=== PATIENT | male | born 1940 | race Caucasian/White ===

== ENCOUNTER → 2021-03-19 10:01 | Outpatient (BNVA) | payer OTHER, SELFPAY | PROVIDERS: PCP Internal Medicine; Visit Provider Nurse Practitioner Family ==

== ENCOUNTER → 2021-09-22 10:02 | Outpatient (BNVA) | payer OTHER, SELFPAY | PROVIDERS: PCP Internal Medicine; Visit Provider Nurse Practitioner Family | DX: G20 Parkinson's disease (principal); F39 Unspecified mood [affective] disorder; Z79.899 Other long term (current) drug therapy | CPT/HCPCS: 99212 ==

== ENCOUNTER → 2022-05-19 11:00 | Outpatient (BNVA) | payer OTHER, SELFPAY | PROVIDERS: PCP Internal Medicine; Visit Provider Nurse Practitioner Family | DX: Z13.89 Encounter for screening for other disorder (principal) ==

== ENCOUNTER 2023-01-13 10:58 | Outpatient (AMB) | payer OTHER, SELFPAY ==
--- NOTE | 2023-01-13 11:13 | A.OFFVIS_ITS ---
Intake Vital Signs 01/13/23 11:18 Height 5 ft 7 in Weight 118 lb BMI 18.5 BP 140/68 H Blood Pressure Location Rt brachial Position Sitting Intake Visit Reasons: 6m follow up -? Dementia-LVM Intake Note: Patient presents for 6 month follow up. Patient states About a month and a half ago I was going on a trip and he had to stay behind, he visited a friend and when he tried to leave he ended up getting lost forgot where he was or where he was going. ([facility]) Allergies No Known Allergies Allergy (Verified 01/13/23 11:17) HPI HPI Comments History of Present Illness Details 82 y/o male patient presents with his gr anddaughter for follow up of Parkinson's and depression. His granddaughter noticed that his memory has been declined, keep asking same questions over and over again. He was lost when he visited his relatives. The place was where he worked before and familiar with him. He called his sister for help. He still drives short distance to go grocery shopping or [employer]. Pt reports that the Parkinson's symptoms are mild, and stable. However, his hands tremor getting worsened with activity, right hand has more tremor than left hand. He uses stabilizer when he needs to write something. He is right handed, but sometimes uses left hand when he drinks coffee. Pt is on Selegiline 5 mg BID. He is very active and can do ADLs independently. Denies hallucination or lightheadedness. Denies choking or constipation. Pt reports his appetite is not good, always not been great. He only drinks seltzer and soda. He eats candies and cookies for breakfast and lunch, frozen meals for dinner. [facility] Surgical History H/O shoulder surgery Social History Alcohol intake: never Patient Tobacco Use Status: Never used Tobacco Review of Systems Const All systems reviewed & are unremarkable except as noted in HPI and below ENT Reports Normal hearing present Neuro Reports Normal hearing present Physical Exam Vital Signs: Last Vital Signs BP 140/68 H 01/13/23 11:18 BMI result Body Mass Index 18.5 Const General: cooperative and no acute distress Nutritional Appearance: underweight Resp Effort & Inspection: normal respiratory effort and able to speak in complete sentences Neuro Other: Decreased expression- mild. Minimal left hand resting tremor. Moderate right hand posturing and action tremor. BUE and foot taps- mild bradykineisa. Gait- Decreased bilateral arm swing but steady. General: moves all extremities Cranial nerves: Yes Bilaterally intact EOM present, Yes Midline tongue present, Yes Symmetric palate elevation present, Yes Normal hearing present, Yes Ability to bilaterally rotate head present and Yes Ability to bilaterally elevate shoulders present Cognition (Neuro): normal cognition Gait exam (Neuro): Normal gait present Motor exam (neuro): 5/5 motor strength present throughout and Pronator motor function not present Psych Mental Status: mental status grossly normal Affect: normal affect Attitude: cooperative Orientation What is the (year) (season) (date) (day) (month)?: year and season Where are we (state) (county) (town or city) (hospital) (floor)?: state, county, town or city and hospital/clinic Registration Name of 3 unrelated objects clearly and slowly, then ask patient to repeat all 3 of them. (1st repeat determines score. Make sure they can repeat all three): object 1, object 2 and object 3 Attention & Calculation (CHOOSE ONE) Ask pt to begin with 100 & count backward by 7. Stop after 5 repeats. If pt cannot ask them to spell the word WORLD backward.: 93 Language Show patient a wristwatch & ask what it is. Repeat for pencil.: watch and pencil Ask the patient to repeat the phrase 'No ifs, ands, or buts' after you.: incorrect Ask the patient to 'take a piece of paper with their right hand' 'fold paper in half' 'place paper on floor': take paper in right hand, fold paper in half and place paper on floor Print the sentence 'CLOSE YOUR EYES' on a piece. If patient actually closes eyes then score.: followed written direction Give patient a blank piece of paper & ask to write a sentence. Score if it contains a noun & verb.: sentence contains subject and verb Ask patient to copy figure of intersecting pentagons exactly. Score if all 10 angles & 2 intersects are included.: all 10 angles present & 2 are intersected Score Score: 18 Assessment & Plan Assessment & Plan (1) Parkinson disease: Comment: asymmetric RUE rest tremor, tone, falls. Sinemet responsive. Code(s): G20 - Parkinson's disease (2) Mood disorder: Code(s): F39 - Unspecified mood [affective] disorder (3) Dementia: Code(s): F03.90 - Unspecified dementia, unspecified severity, without behavioral disturbance, psychotic disturbance, mood disturbance, and anxiety Plan Advised patient to continue to take selegiline 5 mg BID. Start memantine 5 mg q daily. Encouraged patient to increase PO intake, pt may use protein shake. Continue to do daily activity and exercise. Encouraged patient to have well balanced diet. Medications: New memantine 5 mg PO QAM 30 days 30 tabs 6RF Refilled selegiline HCl 5 mg PO BID 30 days 60 caps 6RF Coding Level of Care Code Est Pt Level 4 (75568) Diagnoses Parkinson disease G20 Mood disorder F39 Dementia F03.90
[2023-01-13 11:18] VITALS: BP 140/68; BMI 18.5
== END 2023-01-13 11:51 | disposition home or self-care (01) ==
PROVIDERS: PCP Internal Medicine; Visit Provider Nurse Practitioner Family
DX: G20.A1 Parkinson's disease without dyskinesia, without mention of fluctuations (principal); F02.83 Dementia in other diseases classified elsewhere, unspecified severity, with mood disturbance
CPT/HCPCS: 99214

== ENCOUNTER → 2023-01-13 10:58 | Outpatient (BNVA) | payer OTHER, SELFPAY | PROVIDERS: PCP Internal Medicine; Visit Provider Nurse Practitioner Family ==

== ENCOUNTER 2023-11-29 11:08 | Outpatient (AMB) | payer OTHER, SELFPAY ==
[2023-11-29 11:18] VITALS: BP 142/82; PULSE 72; RESP 16; O2SAT 100; BMI 18.6
--- NOTE | 2023-11-29 11:18 | A.OFFVIS_ITS ---
Vital Signs 11/29/23 11:18 Height 5 ft 7 in Weight 119 lb BMI 18.6 BP 142/82 H Blood Pressure Location Rt brachial Position Sitting Respiration 16 Pulse 72 Pulse Source Palpation Pulse Oximetry (%) 100 Oxygen Delivery Method Room Air Intake Visit Reasons: 6 mo f/u- Parkinson/Dementia Intake Note: Pt presents to the office for a 10 month follow up for Parkinson's and dementia. Felt Tipping Machine Tender Required: No Allergies No Known Allergies Allergy (Verified 11/29/23 11:18) Medication List - Last Reconciled 11/29/23 by Ivette Washburn MD amlodipine 10 mg PO DAILY atorvastatin 40 mg PO DAILY gabapentin 300 mg PO BEDTIME isosorbide mononitrate ER 30 mg PO DAILY levothyroxine 50 mcg PO DAILY memantine 10 mg PO BID 30 days memantine 28 mg PO DAILY metoprolol succinate ER 25 mg PO DAILY omeprazole 20 mg PO DAILY selegiline HCl 5 mg PO BID 30 days HPI Comments Details: 83 y/o male patient presents with his granddaughter for follow up of Parkinson's and depression.He is doing good. Memory is worse He still drives short distances to go grocery shopping or [employer]. Pt reports that the Parkinson's symptoms are mild, and stable.. He lives with his sister(101 yrs old) and his grand daughter. However, his hands tremor getting worsened with activity, right hand has more tremor than left hand. He uses stabilizer when he needs to write something. He is right handed, but sometimes uses left hand when he drinks coffee. Pt is on Selegiline 5 mg BID. He is very active and can do ADLs independently. Denies hallucination or lightheadedness. Denies choking or constipation. Pt reports his appetite is not good, always not been great. He only drinks seltzer and soda. He eats candies and cookies for breakfast and lunch, frozen meals for dinner. COUNT INCLUDES THE [facility] Medical History (Updated 11/29/23 @ 11:45 by Ivette Washburn MD) Dementia Nocturnal leg cramps Hyperlipidemia HTN (hypertension) Surgical History H/O shoulder surgery Social History Alcohol intake: never Patient Tobacco Use Status: Never used Tobacco Review of Systems ENT Reports Normal hearing present Neuro Reports Normal hearing present Physical Exam Vital Signs: Last Vital Signs Pulse 72 11/29/23 11:18 Resp 16 11/29/23 11:18 BP 142/82 H 11/29/23 11:18 Pulse Ox 100 11/29/23 11:18 Oxygen Delivery Method Room Air 11/29/23 11:18 BMI result Body Mass Index 18.6 Const General: cooperative and no acute distress Nutritional Appearance: underweight Resp Effort & Inspection: normal respiratory effort and able to speak in complete sentences Neuro Other: Decreased expression- mild. Minimal left hand resting tremor. Moderate right hand posturing and action tremor. BUE and foot taps- mild bradykineisa. Gait- Decreased bilateral arm swing but steady. General: moves all extremities Cranial nerves: Yes Bilaterally intact EOM present, Yes Midline tongue present, Yes Symmetric palate elevation present, Yes Normal hearing present, Yes Ability to bilaterally rotate head present and Yes Ability to bilaterally elevate shoulders present Cognition (Neuro): abnormal cognition Gait exam (Neuro): Normal gait present Motor exam (neuro): 5/5 motor strength present throughout and Pronator motor function not present Psych Mental Status: mental status grossly normal Affect: normal affect Attitude: cooperative Orientation What is the (year) (season) (date) (day) (month)?: year, season and month Where are we (state) (county) (town or city) (hospital) (floor)?: state, hospital/clinic and floor Registration Name of 3 unrelated objects clearly and slowly, then ask patient to repeat all 3 of them. (1st repeat determines score. Make sure they can repeat all three): object 1, object 2 and object 3 Attention & Calculation (CHOOSE ONE) Spell WORLD backwards (DLROW): 2 letters Recall Ask patient to repeat the 3 items from question #3.: object 1 Language Show patient a wristwatch & ask what it is. Repeat for pencil.: watch and pencil Ask the patient to repeat the phrase 'No ifs, ands, or buts' after you.: correct Ask the patient to 'take a piece of paper with their right hand' 'fold paper in half' 'place paper on floor': take paper in right hand, fold paper in half and place paper on floor Print the sentence 'CLOSE YOUR EYES' on a piece. If patient actually closes eyes then score.: followed written direction Give patient a blank piece of paper & ask to write a sentence. Score if it contains a noun & verb.: sentence contains subject and verb Score Score: 20 Assessment & Plan Assessment & Plan (1) Parkinson disease: Comment: asymmetric RUE rest tremor, tone, falls. Sinemet responsive. Code(s): G20 - Parkinson's disease Category: Medical Qualifiers: Dyskinesia presence: without dyskinesia Fluctuating manifestations: without fluctuating manifestations Qualified Code(s): G20.A1 - Parkinson's disease without dyskinesia, without mention of fluctuations (2) Mood disorder: Code(s): F39 - Unspecified mood [affective] disorder Category: Medical (3) Nocturnal leg cramps: Code(s): G47.62 - Sleep related leg cramps Category: Medical (4) Dementia: Code(s): F03.90 - Unspecified dementia, unspecified severity, without behavioral disturbance, psychotic disturbance, mood disturbance, and anxiety Category: Medical Qualifiers: Dementia type: unspecified type Dementia severity: mild Dementia behavioral or psychological symptom: without behavioral, psychotic, or mood disturbance or anxiety Qualified Code(s): F03.A0 - Unspecified dementia, mild, without behavioral disturbance, psychotic disturbance, mood disturbance, and anxiety Plan Advised patient to continue to take selegiline 5 mg BID. Increase memantine XR 28mg qd or 10mg bid Encouraged patient to increase PO intake, pt may use protein shake. Continue to do daily activity and exercise. Encouraged patient to have well balanced diet. Medications: New memantine 28 mg PO DAILY 30 ea 6RF Changed From memantine 5 mg PO QAM 30 days 30 tabs 6RF To memantine 10 mg PO BID 30 days 60 tabs 6RF Coding Level of Care Code Est Pt Level 4 (62434) Complex EM visit Add On G2211 Diagnoses Parkinson's disease without dyskinesia or fluctuating manifestations G20.A1 Dyskinesia presence: without dyskinesia Fluctuating manifestations: without fluctuating manifestations Mood disorder F39 Nocturnal leg cramps G47.62 Mild dementia without behavioral disturbance, psychotic disturbance, mood disturbance, or anxiety, unspecified dementia type F03.A0 Dementia type: unspecified type Dementia severity: mild Dementia behavioral or psychological symptom: without behavioral, psychotic, or mood disturbance or anxiety
== END 2023-11-29 11:54 | disposition home or self-care (01) ==
PROVIDERS: PCP Internal Medicine; Visit Provider Psychiatry & Neurology Neurology
DX: G20.A1 Parkinson's disease without dyskinesia, without mention of fluctuations (principal); F39 Unspecified mood [affective] disorder; G47.62 Sleep related leg cramps; F03.A0 Unspecified dementia, mild, without behavioral disturbance, psychotic disturbance, mood disturbance, and anxiety
CPT/HCPCS: 99214; G2211

== ENCOUNTER → 2023-11-29 11:08 | Outpatient (BNVA) | payer OTHER, SELFPAY | PROVIDERS: PCP Internal Medicine; Visit Provider Psychiatry & Neurology Neurology ==

== ENCOUNTER 2024-11-11 15:07 | Outpatient (AMB) | payer OTHER, SELFPAY ==
[2024-11-11 15:09] VITALS: BP 122/76; PULSE 83; O2SAT 96; BMI 18.5
--- NOTE | 2024-11-11 15:09 | MHC.OFFVIS ---
Vital Signs 11/11/24 15:09 Height 5 ft 7 in Weight 118 lb 2 oz BMI 18.5 BP 122/76 Blood Pressure Location Rt brachial Position Sitting Pulse 83 Pulse Source Pulse Oximeter Pulse Oximetry (%) 96 Oxygen Delivery Method Room Air Intake Visit Reasons: 6 mo f/u- Parkinson/Dementia-LVM Intake Note: Follow up Parkinson disease and Dementia Call Box Wirer Required: No Accompanied by: Son Allergies No Known Allergies Allergy (Verified 11/11/24 15:09) Medication List - Last Reconciled 11/11/24 by Ivette Washburn MD amlodipine 10 mg PO DAILY aspirin 81 mg PO DAILY atorvastatin 40 mg PO DAILY gabapentin 300 mg PO BEDTIME levothyroxine 50 mcg PO DAILY memantine 10 mg PO BID 30 days memantine 28 mg PO DAILY omeprazole 20 mg PO DAILY selegiline HCl 5 mg PO BID 30 days HPI Comments Details: 84 y/o male patient presents with his son for follow up of Parkinson's and depression.He is doing good. Memory is worse. He is taking his medications regularly and has somebody monitoring him . No worsening [facility] visit. H eis being evaluated for chest pain with activity. He stopped driving . History from last visit- 12/20 Pt reports that the Parkinson's symptoms are mild, and stable.. He lives with his sister(103 yrs old) and his grand daughter. However, his hands tremor getting worsened with activity, right hand has more tremor than left hand. He uses stabilizer when he needs to write something. He is right handed, but sometimes uses left hand when he drinks coffee. Pt is on Selegiline 5 mg BID. He is very active and can do ADLs independently. Denies hallucination or lightheadedness. Denies choking or constipation. Pt reports his appetite is not good, always not been great. He only drinks seltzer and soda. He eats candies and cookies for breakfast and lunch, frozen meals for dinner. [facility] Medical History Dementia Nocturnal leg cramps Hyperlipidemia HTN (hypertension) Surgical History H/O shoulder surgery Social History Alcohol intake: never Patient Tobacco Use Status: Never used Tobacco Review of Systems ENT Reports Normal hearing present Neuro Reports Normal hearing present Physical Exam Vital Signs: Last Vital Signs Pulse 83 11/11/24 15:09 BP 122/76 11/11/24 15:09 Pulse Ox 96 11/11/24 15:09 Oxygen Delivery Method Room Air 11/11/24 15:09 BMI result Body Mass Index 18.5 Const General: cooperative and no acute distress Nutritional Appearance: underweight Resp Effort & Inspection: normal respiratory effort and able to speak in complete sentences Neuro Other: Decreased expression- mild. No tremors Moderate right hand posturing and action tremor. BUE and foot taps- mild bradykineisa. Gait- Decreased bilateral arm swing but steady. General: moves all extremities Cranial nerves: Yes Bilaterally intact EOM present, Yes Midline tongue present, Yes Symmetric palate elevation present, Yes Normal hearing present, Yes Ability to bilaterally rotate head present and Yes Ability to bilaterally elevate shoulders present Cognition (Neuro): abnormal cognition Gait exam (Neuro): Normal gait present Motor exam (neuro): 5/5 motor strength present throughout and Pronator motor function not present Psych Mental Status: mental status grossly normal Affect: normal affect Attitude: cooperative Assessment & Plan Assessment & Plan (1) Parkinson disease: Comment: asymmetric RUE rest tremor, tone, falls. Sinemet responsive. Code(s): G20 - Parkinson's disease Category: Medical Qualifiers: Dyskinesia presence: without dyskinesia Fluctuating manifestations: without fluctuating manifestations Qualified Code(s): G20.A1 - Parkinson's disease without dyskinesia, without mention of fluctuations (2) Mood disorder: Code(s): F39 - Unspecified mood [affective] disorder Category: Medical (3) Nocturnal leg cramps: Code(s): G47.62 - Sleep related leg cramps Category: Medical (4) Dementia: Code(s): F03.90 - Unspecified dementia, unspecified severity, without behavioral disturbance, psychotic disturbance, mood disturbance, and anxiety Category: Medical Qualifiers: Dementia type: unspecified type Dementia severity: mild Dementia behavioral or psychological symptom: without behavioral, psychotic, or mood disturbance or anxiety Qualified Code(s): F03.A0 - Unspecified dementia, mild, without behavioral disturbance, psychotic disturbance, mood disturbance, and anxiety Plan Advised patient to continue to take selegiline 5 mg BID. memantine XR 28mg qd or 10mg bid Encouraged patient to increase PO intake, pt may use protein shake. Continue to do daily activity and exercise. Encouraged patient to have well balanced diet. Coding Level of Care Code Est Pt Level 4 (48129) Diagnoses Parkinson's disease without dyskinesia or fluctuating manifestations G20.A1 Dyskinesia presence: without dyskinesia Fluctuating manifestations: without fluctuating manifestations Mood disorder F39 Nocturnal leg cramps G47.62 Mild dementia without behavioral disturbance, psychotic disturbance, mood disturbance, or anxiety, unspecified dementia type F03.A0 Dementia type: unspecified type Dementia severity: mild Dementia behavioral or psychological symptom: without behavioral, psychotic, or mood disturbance or anxiety
--- OUTSIDE RECORDS SUMMARY | 2024-11-11 20:33 | XMS_ITS | Clinical Summary ---
Author Organization [address] [facility] Address [address] [place] [address] Phone Care Team Providers Care Garnisher Name Role Phone Arvin Thibodeaux MD Primary Care Provide r Allergies No known active allergies Medications albuterol HFA (PROAIR HFA ; PROVENTIL HFA ; VENTOLIN HFA) 90 mcg/actuation inhaler INHALE 2 PUFFS EVERY 4 HOURS NEEDED FOR SHORTNESS OF BREATH / WHEEZING. 4 Active amLODIPine (NORVASC) 10 mg tablet Take 1 tablet (10 mg total) by mouth 1 (one) time each day. 5 Active atorvastatin (LIPITOR) 40 mg tablet Take 1 tablet (40 mg total) by mouth 1 (one) time each day. 5 Active doxycycline hyclate (VIBRA-TABS) 100 mg tablet Take 1 tablet (100 mg total) by mouth 2 (two) times a day. for 10 days 5 Active gabapentin (NEURONTIN) 300 mg capsule Take 1 capsule (300 mg total) by mouth. at bedtime 5 Active isosorbide mononitrate (IMDUR) 30 mg 24 hr tablet Take 1 tablet (30 mg total) by mouth 1 (one) time each day in the morning. 5 Active levothyroxine (SYNTHROID, LEVOTHROID) 50 mcg tablet TAKE 1 TABLET BY MOUTH DAILY AND TAKE 2 TABLETS ON Monday 5 Active memantine (NAMENDA) 10 mg tablet Take 1 tablet (10 mg total) by mouth 2 (two) times a day. 5 Active metoprolol succinate (TOPROL-XL) 25 mg 24 hr tablet Take 1 tablet (25 mg total) by mouth 1 (one) time each day. 4 Active omeprazole (PriLOSEC) [address] capsule Take 1 capsule (20 mg total) by mouth 1 (one) time each day. 5 Active selegiline (ELDEPRYL) 5 mg capsule Take 1 capsule (5 mg total) by mouth 2 (two) times a day. 5 Active Encounters Date Type Department Care Team Description 10/31/2024 9:30 AM EDT Consult Orthopedic Surgery [facility] [address] [phone] Qasim Barron DPM Hammer toe of left foot (Primary Dx); Foot pain; Acquired hallux valgus of left foot; Acquired hallux valgus of right foot; Acquired hammer toe of right foot; Difficulty walking; Dermatophytosis of nail; Pain in toe of right foot; Pain in toe of left foot from Last 3 Months Social History Tobacco Use Types Packs/Day Years Used Date Smoking Tobacco: Never Assessed Sex and Gender Information Value Date Recorded Sex Assigned at Not on file Legal Sex Male 8:56 AM EDT Gender Identity Not on file Sexual Orientation Not on file Last Filed Vital Signs Vital Sign Reading Time Taken Comments Blood Pressure - - Pulse - - Temperature - - Respiratory Rate - - Oxygen Saturation - - Inhaled Oxygen Concentration - - Weight 65.8 kg (145 lb) 10/31/2024 9:56 AM EDT Height 170.2 cm (5' 7 ) 10/31/2024 9:56 AM EDT Body Mass Index 22.71 10/31/2024 9:56 AM EDT Plan of Treatment Upcoming Encounters Date Type Department Care Team (Late st Contact Info) Description 01/15/2025 9:45 AM EST Office Visit Orthopedic Surgery [facility] [address] [phone] Qasim Barron DPM [address] [phone] Health Maintenance Due Date Last Done Comments Pneumococcal Vaccine: 50+ Ye ars (1 of 1 - PCV) 09/02/1991 Zoster Vaccines (1 of 2) 09/02/1991 RSV Immunization Adult Patie nts (1 - 1-dose 75+ series) 2016 Depression Screening 02/28/2024 Cholesterol Screening (Lipid Panel) 08/05/2024 Falls Risk Assessment 08/05/2024 Medicare Annual Wellness Visit 08/05/2024 Social Influencers of Health Screening 08/05/2024 COVID-19 Vaccine (1 - 2023-2 5 season) 2024 Influenza Vaccine (#1) 2024 DTaP,Tdap,and Td Vaccines (2 - Td or Tdap) 07/29/2034 07/29/2024 HIB Vaccines Aged Out No longer eligi ble based on patient's age to complete this topic HPV Vaccines Aged Out No longer eligi ble based on patient's age to complete this topic Hepatitis A Vaccines Aged Out No long er eligible based on patient's age to complete this topic Hepatitis B Vaccines Aged Out No long er eligible based on patient's age to complete this topic IPV Vaccines Aged Out No longer eligi ble based on patient's age to complete this topic MMR Vaccines Aged Out No longer eligi ble based on patient's age to complete this topic Meningococcal ACWY Vaccine Aged Out N o longer eligible based on patient's age to complete this topic Meningococcal B Vaccine Aged Out No l onger eligible based on patient's age to complete this topic RSV Immunization Patients Un murali 20 months Aged Out No longer eligible b ased on patient's age to complete this topic Varicella Vaccines Aged Out No longer eligible based on patient's age to complete this topic Insurance [employer] Care Teams Garnisher Relationship Specialty Start Date End Date Arvin Thibodeaux MD [address] [place] [phone] PCP - General Internal Medicine 08/05/24
== END 2024-11-11 15:34 | disposition home or self-care (01) ==
LOC: HO.HSMS 15:08
PROVIDERS: PCP Internal Medicine; Visit Provider Psychiatry & Neurology Neurology
DX: G20.A1 Parkinson's disease without dyskinesia, without mention of fluctuations (principal); F39 Unspecified mood [affective] disorder; G47.62 Sleep related leg cramps; F03.A0 Unspecified dementia, mild, without behavioral disturbance, psychotic disturbance, mood disturbance, and anxiety
CPT/HCPCS: 99214